=== PATIENT | female | born 1990 | race Caucasian/White ===

== ENCOUNTER 2019-01-25 18:23 | Inpatient (IN) | payer BC ==
[~2019-01-25] VITALS: Ht 157.5 cm; Wt 77.7 kg
[2019-02-03] MEDS ORDERED: OXYTOCIN 30U/ 0.9% NaCL 500ML 500 ML IV ONE (06:02)
[2019-02-03] MEDS ORDERED: OXYTOCIN 30U/ 0.9% NaCL 500ML 500 ML IV PRN (06:02)
[2019-02-03] MEDS ORDERED: D5%-LACTATED RINGERS 1,000 ML IV SCH (06:02)
[2019-02-03] MEDS ORDERED: FENTANYL PF 100 MCG/2ML IVPush PRN (06:30)
[2019-02-03] MEDS ORDERED: TERBUTALINE 1 MG/ML, 1ML IVPush PRN ×2 (06:30)
[2019-02-03] MEDS ORDERED: ONDANSETRON 2MG/ML, 2ML IVPush PRN (06:30)
[2019-02-03] MEDS ORDERED: MISOPROSTOL 25 MCG TABLET VG PRN (06:30)
[2019-02-03] MEDS: LACTATED RINGERS 1,000 ML IV SCH ×5 (06:40→23:35)
[2019-02-03] MEDS ORDERED: NEWBORN KIT ONE (06:52)
[2019-02-03] MEDS ORDERED: OXYTOCIN 30U/ 0.9% NaCL 500ML 500 ML ONE (06:52)
[2019-02-03] MEDS ORDERED: MISOPROSTOL 200 MCG TABLET ONE (06:54)
[2019-02-03] MEDS ORDERED: LIDOCAINE 1%, 20ML ONE (06:54)
[2019-02-03 06:56] LABS: BASOPHILS # (AUTO) 0.02 x10^3/uL (0-0.1); BASOPHILS % (AUTO) 0 % (0-1); EOSINOPHILS # (AUTO) 0.07 x10^3/uL (0-0.4); EOSINOPHILS % (AUTO) 1 % (1-7); LYMPHOCYTES # (AUTO) 1.88 x10^3/uL (1-3.4); LYMPHOCYTES % (AUTO) 25 % (22-44); MD NO; MEAN CORPUSCULAR HEMOGLOBIN 32.5 pg (27.0-34.8); MEAN CORPUSCULAR HGB CONC 33.7 g/dL (32.4-35.8); MEAN CORPUSCULAR VOLUME 96.4 fL (80-100); MEAN PLATELET VOLUME 8.2 fL (7.4-10.4); MONOCYTES # (AUTO) 0.61 x10^3/uL (0.2-0.8); MONOCYTES % (AUTO) 8 % (2-9); NEUTROPHILS # (AUTO) 5.02 x10^3/uL (1.8-6.8); NEUTROPHILS % (AUTO) 66 % (42-75); PLATELET COUNT 192 x10^3/uL (130-400); RED BLOOD COUNT 3.64 x10^6/uL (3.82-5.3); RED CELL DISTRIBUTION WIDTH 13.4 % (9.6-15.2)
[2019-02-03] MEDS ORDERED: PREN1TAB60 PO (07:15)
[2019-02-03] MEDS ORDERED: MISOPROSTOL 25 MCG TABLET ONE ×2 (07:32→11:19)
[2019-02-03] MEDS ORDERED: FENTANYL/BUPIV./NS/PF 250 ML EPIDCONT SCH (08:28)
[2019-02-03] MEDS ORDERED: NALOXONE 0.4 MG/ML, 1ML IVPush PRN (08:30)
[2019-02-03] MEDS ORDERED: LACTATED RINGERS 1,000 ML IVBOLUS PRN (08:30)
[2019-02-03] MEDS ORDERED: EPHEDRINE 50 MG/ML, 1ML IVPush PRN (08:30)
[2019-02-03] MEDS ORDERED: FENTANYL PF 500 MCG, BUPIVACAINE/PF 0.5%, 30ML 62.5 ML in SODIUM CHLORIDE 0.9% 177.5 ML EPIDCONT SCH (18:40)
[2019-02-03] MEDS ORDERED: BUPIVACAINE 0.25% ONE (18:56)
[2019-02-03] MEDS ORDERED: LIDOCAINE/PF 1.5%-EPI 1:200K, 30ML ONE (18:56)
[2019-02-03] MEDS ORDERED: FENTANYL PF 100 MCG/2ML ONE (21:48)
[2019-02-03] MEDS: FENTANYL PF 100 MCG/2ML IV PRN ×2 (22:09→23:07)
[2019-02-04] MEDS ORDERED: TERBUTALINE 1 MG/ML, 1ML ONE (00:26)
[2019-02-04] MEDS: LACTATED RINGERS 1,000 ML IV SCH (03:39)
[2019-02-04] MEDS ORDERED: HYDROcodone/APAP 5/325 TABLET PO PRN ×2 (05:30)
[2019-02-04] MEDS ORDERED: DOCUSATE 100 MG CAPSULE PO PRN (05:30)
[2019-02-04] MEDS ORDERED: ONDANSETRON 2MG/ML, 2ML IV PRN (05:30)
[2019-02-04] MEDS ORDERED: METHYLERGONOVINE 0.2 MG/ML IM PRN (05:30)
[2019-02-04] MEDS ORDERED: MISOPROSTOL 200 MCG TABLET PR PRN (05:30)
[2019-02-04] MEDS ORDERED: CARBOPROST TROMETHAMINE 250 MCG/ML, 1ML IM PRN (05:30)
[2019-02-04] MEDS ORDERED: CALCIUM CARBONATE 500 MG TAB.CHEW PO PRN (05:30)
[2019-02-04] MEDS ORDERED: ACETAMINOPHEN 325 MG TABLET PO PRN (05:30)
[2019-02-04] MEDS ORDERED: OXYTOCIN 30U/ 0.9% NaCL 500ML 500 ML ONE (06:28)
[2019-02-04] MEDS: OXYTOCIN 30U/ 0.9% NaCL 500ML 500 ML IV SCH ×2 (06:30→15:26)
[2019-02-04] MEDS ORDERED: IBUPROFEN 600 MG TABLET ONE (07:36)
[2019-02-04] MEDS: IBUPROFEN 600 MG TABLET PO PRN ×2 (07:37→16:13)
[2019-02-04 08:00] VITALS: BP 95/53
[2019-02-04] MEDS: PRENATAL VIT/IRON/FA 1 EACH TABLET PO SCH (09:00)
[2019-02-04 12:15] VITALS: BP 100/62
[2019-02-04 13:21] LABS: MEAN CORPUSCULAR HEMOGLOBIN 31.8 pg (27.0-34.8); MEAN CORPUSCULAR VOLUME 96.5 fL (80-100); PLATELET COUNT 210 x10^3/uL (130-400); RED CELL DISTRIBUTION WIDTH 13.3 % (9.6-15.2)
[2019-02-04 14:08] LABS: BASOPHILS # (AUTO) 0.04 x10^3/uL (0-0.1); BASOPHILS % (AUTO) 0 % (0-1); EOSINOPHILS # (AUTO) 0.03 x10^3/uL (0-0.4); EOSINOPHILS % (AUTO) 0 % (1-7); LYMPHOCYTES # (AUTO) 1.81 x10^3/uL (1-3.4); LYMPHOCYTES % (AUTO) 12 % (22-44); MD SCAN; MONOCYTES % (AUTO) 7 % (2-9); NEUTROPHILS # (AUTO) 12.39 x10^3/uL (1.8-6.8); NEUTROPHILS % (AUTO) 81 % (42-75)
[2019-02-04 16:00] VITALS: BP 100/64
[2019-02-04 20:00] VITALS: BP 115/69
[2019-02-05 00:45] VITALS: BP 98/57
[2019-02-05] MEDS: IBUPROFEN 600 MG TABLET PO PRN (00:51)
[2019-02-05] MEDS: OXYTOCIN 30U/ 0.9% NaCL 500ML 500 ML IV SCH (01:26)
[2019-02-05 04:45] VITALS: BP 109/66
[2019-02-05 07:30] VITALS: BP 114/71
[2019-02-05] MEDS ORDERED: MEASLES,MUMPS&RUBELLA VACC/PF 0.5 ML SQ-VACC ONE (08:30)
[2019-02-05] MEDS: PRENATAL VIT/IRON/FA 1 EACH TABLET PO SCH (09:00)
== END 2019-02-05 09:28 | disposition home or self-care (01) | DRG 807 ==
LOC: LDIP 02-03 05:53 → 2NW 02-04 07:53
PROVIDERS: ADMIT Obstetrics & Gynecology; ATTEND Obstetrics & Gynecology
PROC: 10E0XZZ Delivery of Products of Conception, External Approach (ICD-10-PCS; principal; 2019-02-04)
PROC: 3E033VJ Introduction of Other Hormone into Peripheral Vein, Percutaneous Approach (ICD-10-PCS; 2019-02-04)
DX: O69.1XX0 Labor and delivery complicated by cord around neck, with compression, not applicable or unspecified (principal); Z37.0 Single live birth; O70.0 First degree perineal laceration during delivery; Z3A.41 41 weeks gestation of pregnancy
CPT/HCPCS: 36415; J7121; S0020; 82803; 85025; 86850; 86900; G0378; J3010; J3490; J2590; J7050; J7120